=== PATIENT | male | born 1970 | race Caucasian/White ===

== ENCOUNTER 2023-03-23 09:05 | Inpatient (IN) | payer BC ==
[~2023-03-23] VITALS: Ht 167.6 cm; Wt 90.2 kg
[2023-03-23] MEDS ORDERED: normal saline 1000ML IV soln IVB ONE (09:20)
[2023-03-23] MEDS ORDERED: ondansetron/PF 4mg/2ml inj IV ONE (09:20)
[2023-03-23] MEDS ORDERED: morphine 4 MG/ML inj SYRINge IV ONE (09:20)
[2023-03-23 09:55] LABS: BASOPHILS % (AUTO) 0.3 % (0-1); EOSINOPHILS # (AUTO) 0.1 X10'3 (0-0.9); HEMATOCRIT 47.6 % (42.0-52.0); HEMOGLOBIN 16.1 g/dl (14.0-17.9); LYMPHOCYTES # (AUTO) 1.2 X10'3 (1.1-4.8); LYMPHOCYTES % (AUTO) 11.3 % (21-51); MEAN CORPUSCULAR HEMOGLOBIN 29.6 PG (27.0-31.0); MEAN CORPUSCULAR HGB CONC 33.8 g/dL (33.0-36.5); MEAN CORPUSCULAR VOLUME 87.7 FL (78-98); MEAN PLATELET VOLUME 6.9 FL (7.4-10.4); MONOCYTES # (AUTO) 0.9 X10'3 (0-0.9); MONOCYTES % (AUTO) 8.3 % (2-12); NEUTROPHILS # (AUTO) 8.3 X10'3 (1.8-7.7); NEUTROPHILS % (AUTO) 79.1 % (42-75); PLATELET COUNT 327 X10'3 (140-440); RED BLOOD COUNT 5.42 X10'6 (4.70-6.10); RED CELL DISTRIBUTION WIDTH 14.8 % (11.5-14.5); WHITE BLOOD COUNT 10.5 X10'3 (4.5-11.0)
[2023-03-23 10:22] LABS: ALANINE AMINOTRANSFERASE 33 U/L (12-78); ALBUMIN 2.9 G/DL (3.4-5.0); ALBUMIN/GLOBULIN RATIO 0.6 (1.1-1.5); ALKALINE PHOSPHATASE 85 IU/L (46-116); ANION GAP 5 (8-16); ASPARTATE AMINO TRANSFERASE 20 U/L (10-37); BILIRUBIN,TOTAL 0.7 MG/DL (0.1-1.0); BLOOD UREA NITROGEN 8 MG/DL (7-18); BUN/CREATININE RATIO 9.6 (10.0-20.0); CALCIUM 8.8 MG/DL (8.5-10.1); CHLORIDE 100 MMOL/L (99-107); CREATININE 0.83 MG/DL (0.60-1.10); GLUCOSE 129 MG/DL (70-104); LIPASE 20 U/L (16-77); POTASSIUM 4.1 MMOL/L (3.5-5.1); SODIUM 133 MMOL/L (135-145); TOTAL CARBON DIOXIDE 28.5 MMOL/L (24-32); TOTAL PROTEIN 7.5 G/DL (6.4-8.2); eCRCL 95 ML/MIN; eGFR > 90 ML/MIN
[2023-03-23] MEDS ORDERED: iohexol 300mg/ml 100ml inj. ONE (10:25)
[2023-03-23 11:17] LABS: COLOR,URINE ORANGE (Yellow); UA COLLECTION TYPE CLN CATCH MIDSTREAM
[2023-03-23 11:18] LABS: CLARITY,URINE SLIGHTLY CLOUDY (Clear)
[2023-03-23 11:22] LABS: SQUAMOUS EPITHELIAL CELL,UR MODERATE /LPF (FEW)
[2023-03-23 11:27] LABS: BACTERIA,URINE FEW /HPF (Neg); MUCUS STRANDS MODERATE /LPF (Neg); TRANSITIONAL EPI CELLS,URINE FEW /HPF
[2023-03-23 11:30] LABS: WBC,URINE 0-4 /HPF (0-4)
[2023-03-23] MEDS ORDERED: potassium Cl 40MEQ/1/2NS 520ml 520 ML IV PRN (12:10)
[2023-03-23] MEDS ORDERED: magnesium Cl slow-release 64mg tablet PO PRN (12:10)
[2023-03-23] MEDS ORDERED: acetaminophen 325mg tablet PO PRN (12:10)
[2023-03-23] MEDS ORDERED: docusate sod 100mg capsule PO PRN (12:10)
[2023-03-23] MEDS ORDERED: mag hydrox/Alum hydrox/simeth 30ml oral suspension PO PRN (12:10)
[2023-03-23] MEDS ORDERED: ondansetron/PF 4mg/2ml inj IV PRN (12:10)
[2023-03-23] MEDS ORDERED: potassium Cl 20 mEq SR tablet PO PRN ×2 (12:10)
[2023-03-23] MEDS ORDERED: morphine 2 MG/ML inj. syringe IV PRN (12:10)
[2023-03-23] MEDS ORDERED: magnesium hydroxide 30ml (MOM) UD suspension PO PRN (12:10)
[2023-03-23] MEDS ORDERED: magnesium 4gm in 100ml NS 100 ML IV PRN (12:10)
[2023-03-23] MEDS ORDERED: nicotine 21mg patch - 24 hr TD ONE (12:25)
[2023-03-23] MEDS: normal saline 1000ml 1,000 ML IV SCH (12:51)
[2023-03-23 13:02] LABS: HEMOGLOBIN A1C 5.6 % (4.5-6.2)
[2023-03-23] MEDS: morphine 2 MG/ML inj. syringe IV PRN ×2 (16:27→20:58)
[2023-03-23] MEDS ORDERED: NO HOME MEDS (18:33)
[2023-03-23] MEDS: HYDROcodone/acetaminophen 10/325mg tab PO PRN (19:58)
[2023-03-23 20:00] VITALS: RESP 18; O2SAT 96
[2023-03-23] MEDS ORDERED: piperacillin/tazo 4.5gm/100ml 100 ML IV ONE (20:00)
[2023-03-23] MEDS: heparin, porcine 5000 units/ml vial SQ SCH (20:59)
[2023-03-23] MEDS: diatr meglu/diatrizoate 30ml oral sol.-(3 dose) bottle PO SCH (21:00)
[2023-03-23 22:00] VITALS: BP 147/90; PULSE 78; RESP 20; TEMP 98.1
[2023-03-24] VITALS (12 sets, daily range): BP systolic 133–176; BP diastolic 83–120; PULSE 66–103; RESP 12–18; TEMP 97.5–98.4; O2SAT 93–97
[2023-03-24] MEDS: piperacillin/tazo 3.375gm/50ml 50 ML IV SCH ×2 (00:53→16:05)
[2023-03-24] MEDS: HYDROcodone/acetaminophen 10/325mg tab PO PRN ×3 (00:56→15:04)
[2023-03-24] MEDS: diatr meglu/diatrizoate 30ml oral sol.-(3 dose) bottle PO SCH (07:31)
[2023-03-24] MEDS: heparin, porcine 5000 units/ml vial SQ SCH ×2 (07:56→19:33)
[2023-03-24 09:29] LABS: BASOPHILS % (AUTO) 0.4 % (0-1); EOSINOPHILS # (AUTO) 0.2 X10'3 (0-0.9); EOSINOPHILS % (AUTO) 2.1 % (0-6); HEMATOCRIT 45.4 % (42.0-52.0); HEMOGLOBIN 15.2 g/dl (14.0-17.9); LYMPHOCYTES # (AUTO) 1.4 X10'3 (1.1-4.8); LYMPHOCYTES % (AUTO) 15.1 % (21-51); MEAN CORPUSCULAR HEMOGLOBIN 29.2 PG (27.0-31.0); MEAN CORPUSCULAR HGB CONC 33.5 g/dL (33.0-36.5); MEAN CORPUSCULAR VOLUME 87.1 FL (78-98); MONOCYTES # (AUTO) 0.7 X10'3 (0-0.9); MONOCYTES % (AUTO) 7.7 % (2-12); NEUTROPHILS # (AUTO) 6.9 X10'3 (1.8-7.7); NEUTROPHILS % (AUTO) 74.7 % (42-75); PLATELET COUNT 292 X10'3 (140-440); RED BLOOD COUNT 5.21 X10'6 (4.70-6.10); RED CELL DISTRIBUTION WIDTH 14.4 % (11.5-14.5); WHITE BLOOD COUNT 9.3 X10'3 (4.5-11.0)
[2023-03-24 09:37] LABS: ALANINE AMINOTRANSFERASE 25 U/L (12-78); ALBUMIN 2.6 G/DL (3.4-5.0); ALBUMIN/GLOBULIN RATIO 0.6 (1.1-1.5); ALKALINE PHOSPHATASE 81 IU/L (46-116); ANION GAP 6 (8-16); ASPARTATE AMINO TRANSFERASE 14 U/L (10-37); BILIRUBIN,TOTAL 0.6 MG/DL (0.1-1.0); BLOOD UREA NITROGEN 8 MG/DL (7-18); BUN/CREATININE RATIO 11.1 (10.0-20.0); CALCIUM 8.8 MG/DL (8.5-10.1); CHLORIDE 100 MMOL/L (99-107); CREATININE 0.72 MG/DL (0.60-1.10); GLUCOSE 122 MG/DL (70-104); PHOSPHORUS 2.6 MG/DL (2.3-4.5); POTASSIUM 4.1 MMOL/L (3.5-5.1); SODIUM 134 MMOL/L (135-145); TOTAL CARBON DIOXIDE 27.8 MMOL/L (24-32); TOTAL PROTEIN 7.1 G/DL (6.4-8.2); eCRCL 110 ML/MIN; eGFR > 90 ML/MIN
[2023-03-24] MEDS ORDERED: fentaNYL/PF 50MCG/1 ML 2ML syringe ONE (10:10)
[2023-03-24] MEDS ORDERED: midazolam 1 mg/ML 2ml injection ONE (10:10)
[2023-03-24] MEDS: normal saline 1000ml 1,000 ML IV SCH (14:56)
[2023-03-24] MEDS ORDERED: hydrALAZINE 20mg/ml inj. IV PRN (17:45)
[2023-03-24] MEDS: morphine 2 MG/ML inj. syringe IV PRN (19:33)
[2023-03-25] VITALS (7 sets, daily range): BP systolic 105–140; BP diastolic 66–93; PULSE 65–87; RESP 12–20; TEMP 97.5–98.2; O2SAT 96–98
[2023-03-25] MEDS: piperacillin/tazo 3.375gm/50ml 50 ML IV SCH ×3 (00:09→23:16)
[2023-03-25] MEDS: normal saline 1000ml 1,000 ML IV SCH ×2 (04:10→23:15)
[2023-03-25 06:45] LABS: ALANINE AMINOTRANSFERASE 14 U/L (12-78); ALBUMIN 2.6 G/DL (3.4-5.0); ALBUMIN/GLOBULIN RATIO 0.5 (1.1-1.5); ALKALINE PHOSPHATASE 75 IU/L (46-116); ANION GAP 10 (8-16); ASPARTATE AMINO TRANSFERASE 14 U/L (10-37); BILIRUBIN,TOTAL 0.7 MG/DL (0.1-1.0); BLOOD UREA NITROGEN 11 MG/DL (7-18); BUN/CREATININE RATIO 12.2 (10.0-20.0); CALCIUM 9.5 MG/DL (8.5-10.1); CHLORIDE 98 MMOL/L (99-107); GLUCOSE 113 MG/DL (70-104); MAGNESIUM 2.2 MG/DL (1.5-2.4); PHOSPHORUS 3.6 MG/DL (2.3-4.5); POTASSIUM 4.2 MMOL/L (3.5-5.1); SODIUM 133 MMOL/L (135-145); TOTAL CARBON DIOXIDE 25.4 MMOL/L (24-32); eCRCL 88 ML/MIN; eGFR 89 ML/MIN
[2023-03-25 06:58] LABS: BASOPHILS % (AUTO) 0.3 % (0-1); EOSINOPHILS # (AUTO) 0.2 X10'3 (0-0.9); EOSINOPHILS % (AUTO) 2.7 % (0-6); HEMATOCRIT 48.4 % (42.0-52.0); HEMOGLOBIN 16.2 g/dl (14.0-17.9); LYMPHOCYTES # (AUTO) 1.4 X10'3 (1.1-4.8); LYMPHOCYTES % (AUTO) 18.6 % (21-51); MEAN CORPUSCULAR HEMOGLOBIN 29.2 PG (27.0-31.0); MEAN CORPUSCULAR HGB CONC 33.5 g/dL (33.0-36.5); MEAN CORPUSCULAR VOLUME 87.2 FL (78-98); MEAN PLATELET VOLUME 7.1 FL (7.4-10.4); MONOCYTES # (AUTO) 0.8 X10'3 (0-0.9); MONOCYTES % (AUTO) 10.5 % (2-12); NEUTROPHILS # (AUTO) 5.2 X10'3 (1.8-7.7); NEUTROPHILS % (AUTO) 67.9 % (42-75); PLATELET COUNT 333 X10'3 (140-440); RED BLOOD COUNT 5.55 X10'6 (4.70-6.10); RED CELL DISTRIBUTION WIDTH 14.4 % (11.5-14.5); WHITE BLOOD COUNT 7.7 X10'3 (4.5-11.0)
[2023-03-25] MEDS: heparin, porcine 5000 units/ml vial SQ SCH ×2 (07:40→19:42)
[2023-03-25] MEDS: HYDROcodone/acetaminophen 5mg/325mg tablet PO PRN ×2 (07:47→14:10)
[2023-03-25] MEDS: nicotine 21mg patch - 24 hr TD SCH (08:00)
[2023-03-25] MEDS: morphine 2 MG/ML inj. syringe IV PRN (09:12)
[2023-03-25] MEDS ORDERED: iohexol 300mg/ml 100ml inj. ONE (15:03)
[2023-03-25] MEDS: diatr meglu/diatrizoate 30ml oral sol.-(3 dose) bottle PO SCH (19:20)
[2023-03-25] MEDS: HYDROcodone/acetaminophen 10/325mg tab PO PRN (19:39)
[2023-03-26 06:58] LABS: BASOPHILS % (AUTO) 0.2 % (0-1); EOSINOPHILS # (AUTO) 0.2 X10'3 (0-0.9); EOSINOPHILS % (AUTO) 3.8 % (0-6); HEMATOCRIT 48.7 % (42.0-52.0); HEMOGLOBIN 16.1 g/dl (14.0-17.9); LYMPHOCYTES # (AUTO) 1.4 X10'3 (1.1-4.8); LYMPHOCYTES % (AUTO) 21.4 % (21-51); MEAN CORPUSCULAR HEMOGLOBIN 29.2 PG (27.0-31.0); MEAN CORPUSCULAR HGB CONC 33.1 g/dL (33.0-36.5); MEAN CORPUSCULAR VOLUME 88.1 FL (78-98); MONOCYTES # (AUTO) 0.6 X10'3 (0-0.9); MONOCYTES % (AUTO) 9.3 % (2-12); NEUTROPHILS # (AUTO) 4.2 X10'3 (1.8-7.7); NEUTROPHILS % (AUTO) 65.3 % (42-75); PLATELET COUNT 334 X10'3 (140-440); RED BLOOD COUNT 5.53 X10'6 (4.70-6.10); RED CELL DISTRIBUTION WIDTH 14.5 % (11.5-14.5); WHITE BLOOD COUNT 6.4 X10'3 (4.5-11.0)
[2023-03-26 07:27] LABS: ALANINE AMINOTRANSFERASE 20 U/L (12-78); ALBUMIN 2.6 G/DL (3.4-5.0); ALBUMIN/GLOBULIN RATIO 0.6 (1.1-1.5); ALKALINE PHOSPHATASE 67 IU/L (46-116); ANION GAP 9 (8-16); ASPARTATE AMINO TRANSFERASE 16 U/L (10-37); BILIRUBIN,TOTAL 0.4 MG/DL (0.1-1.0); BLOOD UREA NITROGEN 14 MG/DL (7-18); BUN/CREATININE RATIO 17.9 (10.0-20.0); CALCIUM 9.2 MG/DL (8.5-10.1); CHLORIDE 101 MMOL/L (99-107); CREATININE 0.78 MG/DL (0.60-1.10); GLUCOSE 121 MG/DL (70-104); MAGNESIUM 2.3 MG/DL (1.5-2.4); PHOSPHORUS 3.7 MG/DL (2.3-4.5); POTASSIUM 4.3 MMOL/L (3.5-5.1); SODIUM 135 MMOL/L (135-145); TOTAL CARBON DIOXIDE 25.4 MMOL/L (24-32); TOTAL PROTEIN 7.3 G/DL (6.4-8.2); eCRCL 101 ML/MIN; eGFR > 90 ML/MIN
[2023-03-26 07:41] VITALS: BP 124/79; PULSE 73; RESP 18; TEMP 97.1; O2SAT 98
[2023-03-26] MEDS: heparin, porcine 5000 units/ml vial SQ SCH ×2 (07:46→21:11)
[2023-03-26] MEDS: HYDROcodone/acetaminophen 10/325mg tab PO PRN ×3 (07:52→17:25)
[2023-03-26 08:00] VITALS: RESP 18
[2023-03-26] MEDS: nicotine 21mg patch - 24 hr TD SCH (08:00)
[2023-03-26] MEDS: piperacillin/tazo 3.375gm/50ml 50 ML IV SCH (12:38)
[2023-03-26 19:00] VITALS: RESP 18
[2023-03-26] MEDS: normal saline 1000ml 1,000 ML IV SCH (21:20)
[2023-03-26 22:00] VITALS: BP 127/85; PULSE 53; RESP 17; TEMP 97.5; O2SAT 96
[2023-03-27] MEDS: piperacillin/tazo 3.375gm/50ml 50 ML IV SCH (00:25)
[2023-03-27 02:00] VITALS: BP 148/81; PULSE 56; RESP 16; TEMP 97.2; O2SAT 96
[2023-03-27 06:32] LABS: BASOPHILS % (AUTO) 0.5 % (0-1); EOSINOPHILS # (AUTO) 0.3 X10'3 (0-0.9); EOSINOPHILS % (AUTO) 4.3 % (0-6); HEMATOCRIT 46.5 % (42.0-52.0); HEMOGLOBIN 15.8 g/dl (14.0-17.9); LYMPHOCYTES # (AUTO) 1.5 X10'3 (1.1-4.8); LYMPHOCYTES % (AUTO) 23.4 % (21-51); MEAN CORPUSCULAR HEMOGLOBIN 29.7 PG (27.0-31.0); MEAN CORPUSCULAR HGB CONC 34.1 g/dL (33.0-36.5); MEAN CORPUSCULAR VOLUME 87.2 FL (78-98); MONOCYTES # (AUTO) 0.6 X10'3 (0-0.9); MONOCYTES % (AUTO) 9.9 % (2-12); NEUTROPHILS % (AUTO) 61.9 % (42-75); PLATELET COUNT 381 X10'3 (140-440); RED BLOOD COUNT 5.32 X10'6 (4.70-6.10); RED CELL DISTRIBUTION WIDTH 14.4 % (11.5-14.5); WHITE BLOOD COUNT 6.5 X10'3 (4.5-11.0)
[2023-03-27 07:02] LABS: ALANINE AMINOTRANSFERASE 30 U/L (12-78); ALBUMIN 2.6 G/DL (3.4-5.0); ALBUMIN/GLOBULIN RATIO 0.5 (1.1-1.5); ALKALINE PHOSPHATASE 69 IU/L (46-116); ANION GAP 6 (8-16); ASPARTATE AMINO TRANSFERASE 20 U/L (10-37); BILIRUBIN,TOTAL 0.4 MG/DL (0.1-1.0); BLOOD UREA NITROGEN 13 MG/DL (7-18); BUN/CREATININE RATIO 14.6 (10.0-20.0); CALCIUM 9.3 MG/DL (8.5-10.1); CHLORIDE 101 MMOL/L (99-107); CREATININE 0.89 MG/DL (0.60-1.10); GLUCOSE 119 MG/DL (70-104); MAGNESIUM 2.1 MG/DL (1.5-2.4); PHOSPHORUS 3.4 MG/DL (2.3-4.5); POTASSIUM 4.2 MMOL/L (3.5-5.1); SODIUM 135 MMOL/L (135-145); TOTAL CARBON DIOXIDE 27.9 MMOL/L (24-32); TOTAL PROTEIN 7.7 G/DL (6.4-8.2); eCRCL 89 ML/MIN; eGFR 90 ML/MIN
[2023-03-27 08:00] VITALS: RESP 18
[2023-03-27] MEDS: heparin, porcine 5000 units/ml vial SQ SCH (08:00)
[2023-03-27] MEDS: nicotine 21mg patch - 24 hr TD SCH (08:00)
[2023-03-27] MEDS: HYDROcodone/acetaminophen 10/325mg tab PO PRN (08:19)
[2023-03-27 11:00] VITALS: BP 143/80; PULSE 58; RESP 18; TEMP 98.4; O2SAT 100
[2023-03-27] MEDS ORDERED: CIPR-202 PO (11:28)
[2023-03-27] MEDS ORDERED: NICO-687 TD (11:28)
[2023-03-27] MEDS ORDERED: METR-159 PO (11:28)
[2023-03-27] MEDS ORDERED: LISI5TAB22 PO (11:28)
== END 2023-03-27 12:33 | disposition home or self-care (01) | DRG 391 ==
LOC: ER 09:06 → ED HOLD 12:15 → PCU 3S 19:27
PROVIDERS: ADMIT Family Medicine; ATTEND Family Medicine
PROC: BW211ZZ Computerized Tomography (CT Scan) of Abdomen and Pelvis using Low Osmolar Contrast (ICD-10-PCS; principal; 2023-03-23)
PROC: 0D9N30Z Drainage of Sigmoid Colon with Drainage Device, Percutaneous Approach (ICD-10-PCS; 2023-03-24)
PROC: BW211ZZ Computerized Tomography (CT Scan) of Abdomen and Pelvis using Low Osmolar Contrast (ICD-10-PCS; 2023-03-25)
DX: K57.20 Diverticulitis of large intestine with perforation and abscess without bleeding (principal); K65.1 Peritoneal abscess; E87.1 Hypo-osmolality and hyponatremia; N40.0 Benign prostatic hyperplasia without lower urinary tract symptoms; F17.210 Nicotine dependence, cigarettes, uncomplicated; E66.9 Obesity, unspecified; Z68.32 Body mass index [BMI] 32.0-32.9, adult; Z83.3 Family history of diabetes mellitus
CPT/HCPCS: 36415; 49406; 74177; 80053; 81001; 83036; 83605; 83690; 83735; 84100; 84145; 85025; 87040; 87070; 87077; 87081; 87186; 99152; 99153; 99285; A4421; A6258; C1729; C1769; G0378; J0360; J1644; J2250; J2270; J2405; J2543; J3010; J3490; J7030; Q9963; Q9967

== ENCOUNTER 2024-06-16 01:46 | Emergency (ER) | payer BC, MEDICAID, OTHER ==
[~2024-06-16] VITALS: Ht 167.6 cm; Wt 93.3 kg
[~2024-06-16 01:46] MED LIST: LISI5TAB22 PO; NICO-687 TD
[2024-06-16 02:29] LABS: BASOPHILS # (AUTO) 0.1 X10'3 (0-0.2); BASOPHILS % (AUTO) 0.7 % (0-1); EOSINOPHILS # (AUTO) 0.1 X10'3 (0-0.9); EOSINOPHILS % (AUTO) 0.8 % (0-6); HEMATOCRIT 52.8 % (42.0-52.0); HEMOGLOBIN 17.5 g/dl (14.0-17.9); LYMPHOCYTES # (AUTO) 3.9 X10'3 (1.1-4.8); LYMPHOCYTES % (AUTO) 42.8 % (21-51); MEAN CORPUSCULAR HEMOGLOBIN 28.7 PG (27.0-31.0); MEAN CORPUSCULAR HGB CONC 33.1 g/dL (33.0-36.5); MEAN CORPUSCULAR VOLUME 86.7 FL (78-98); MONOCYTES # (AUTO) 0.9 X10'3 (0-0.9); MONOCYTES % (AUTO) 9.8 % (2-12); NEUTROPHILS # (AUTO) 4.2 X10'3 (1.8-7.7); NEUTROPHILS % (AUTO) 45.9 % (42-75); PLATELET COUNT 307 X10'3 (140-440); RED BLOOD COUNT 6.08 X10'6 (4.70-6.10); RED CELL DISTRIBUTION WIDTH 14.8 % (11.5-14.5)
[2024-06-16 02:33] LABS: BILIRUBIN,URINE NEGATIVE (Neg); CLARITY,URINE CLEAR (Clear); COLOR,URINE YELLOW (Yellow); GLUCOSE, URINE NEGATIVE (Neg); KETONES,URINE NEGATIVE (Neg); LEUKOCYTE ESTERASE ,URINE NEGATIVE (Neg); NITRITES, URINE NEGATIVE (Neg); OCCULT BLOOD,URINE NEGATIVE (Neg); PH,URINE 5.5 (4.8-8.0); PROTEIN,URINE NEGATIVE (Neg); UROBILINOGEN,URINE 0.2 E.U/dL (0.2-1.0)
[2024-06-16 02:38] LABS: UA COLLECTION TYPE CLN CATCH MIDSTREAM
[2024-06-16 02:42] LABS: URINE AMPHETAMINE SCREEN NEGATIVE (Neg); URINE BARBITUATE SCREEN NEGATIVE (Neg); URINE BENZODIAZEPINES SCREEN NEGATIVE (Neg); URINE CANNABINOID SCREEN NEGATIVE (Neg); URINE COCAINE SCREEN NEGATIVE (Neg); URINE METHADONE SCREEN NEGATIVE (Neg); URINE OPIATE SCREEN NEGATIVE (Neg); URINE PHENCYCLIDINE SCREEN NEGATIVE (Neg)
[2024-06-16 02:52] LABS: ANION GAP 11 (8-16); BLOOD UREA NITROGEN 12 MG/DL (7-18); BUN/CREATININE RATIO 11.8 (10.0-20.0); CALCIUM 9.5 MG/DL (8.5-10.1); CHLORIDE 102 MMOL/L (99-107); CREATININE 1.02 MG/DL (0.60-1.10); ETHANOL 222 MG/DL (<10); GLUCOSE 101 MG/DL (70-104); POTASSIUM 4.1 MMOL/L (3.5-5.1); SALICYLATE 2.6 MG/DL (4.0-20.0); SODIUM 141 MMOL/L (135-145); THYROID STIMULATING HORMONE 1.62 ulU/ml (0.34-4.50); TOTAL CARBON DIOXIDE 28.4 MMOL/L (24-32); eCRCL 76 ML/MIN; eGFR 77 ML/MIN
[2024-06-16 02:53] LABS: ACETAMINOPHEN < 2.0 UG/ML (10-30)
[2024-06-16 12:48] VITALS: BP 151/93; PULSE 111; RESP 20; TEMP 97.9; O2SAT 96
== END 2024-06-16 12:37 | disposition home or self-care (01) ==
LOC: ER 01:47
DX: T50.902A Poisoning by unspecified drugs, medicaments and biological substances, intentional self-harm, initial encounter (principal); R45.851 Suicidal ideations; Z98.890 Other specified postprocedural states; Z20.822 Contact with and (suspected) exposure to COVID-19; Y92.89 Other specified places as the place of occurrence of the external cause
CPT/HCPCS: 36415; 80048; 80305; 80320; 80329; 81003; 84443; 85025; 87811; 93005; 99285